=== PATIENT | female | born 1955 | race Caucasian/White ===

== ENCOUNTER → 2017-11-06 | Day surgery (SDC) | payer OTHER ==
[2017-11-06] VITALS (31 sets, daily range): BP systolic 57–136; BP diastolic 38–93
[~2017-11-06] MED LIST: ADENOSINE 3MG/1ML 30ML VIAL ONE; AMLODIPINE BESY10 MG PO; ASPIR 8181 MG PO; ATORVASTATIN CA10 MG PO; ATROPINE SULFATE 0.1 MG/ML 10ML SYR ONE; ESTRADIOL1 MG PO; FENTANYL CITRATE/PF 100MCG/2 ML INJ ONE; HEPARIN SOD (PORCINE) 1000 UNIT/ML 30ML ONE; HEPARIN SOD/SOD CHLORIDE 2,000 ML ONE; HYDROCHLOROTHIA25 MG PO; IOPAMIDOL 300MG/ML 100 ML INFUS..BTL IV ONE; IOPAMIDOL 370 MG/ML 200 ML INFUS..BTL INJ ONE; LEVOTHYROXINE112 MCG PO; LIDOCAINE HCL 2% LOCAL 20 ML VIAL ONE; MIDAZOLAM HCL 2 MG/2 ML VIAL ONE; NITROGLYCERIN/D5W 200 MCG/ML 250 ML ONE; OMEPRAZOLE40 MG PO; QUINAPRIL HCL20 MG PO; SODIUM CHLORIDE 0.9% 1000ML 1,000 ML ONE; SODIUM CHLORIDE 0.9% 500ML 1,000 ML ONE; SODIUM CHLORIDE 0.9% 50ML 50 ML ONE; fish oil PO
[2017-11-06 10:14] LABS: BASOPHILS % 0.6 % (0.0-1.0); EOSINOPHILS # (AUTO) 0.1 (0.0-0.4); EOSINOPHILS % 1.2 % (0.0-6.0); HEMATOCRIT 45.3 % (34.2-44.1); HEMOGLOBIN 15.4 g/dL (12.0-16.0); LYMPHOCYTES # (AUTO) 2.7 (1.0-3.2); LYMPHOCYTES % 38.8 % (18.0-39.1); MEAN CORPUSCULAR HEMOGLOBIN 31.4 pg (28-32); MEAN CORPUSCULAR VOLUME 92.3 fL (81-99); MONOCYTES # (AUTO) 0.4 (0.2-0.8); MONOCYTES % 5.1 % (4.4-11.3); NEUTROPHILS # (AUTO) 3.7 (2.1-6.9); NEUTROPHILS % 53.4 % (38.7-80.0); PLATELET COUNT 259 x10e3/uL (140-360); RED BLOOD COUNT 4.91 x10e6/uL (3.6-5.1); RED CELL DISTRIBUTION WIDTH 12.3 % (11.7-14.4)
[2017-11-06 10:22] LABS: INR 1.06
[2017-11-06 10:23] LABS: PARTIAL THROMBOPLASTIN TIME 26.4 seconds (23.8-35.5)
[2017-11-06 10:33] LABS: ALANINE AMINOTRANSFERASE 25 IU/L (0-55); ALBUMIN 4.3 g/dL (3.5-5.0); ALBUMIN/GLOBULIN RATIO 1.1 (0.8-2.0); ALKALINE PHOSPHATASE 74 IU/L (40-150); ANION GAP 14.4 mmol/L (8-16); BLOOD UREA NITROGEN 12 mg/dL (7-26); BUN/CREATININE RATIO 14 (6-25); CALCIUM 9.4 mg/dL (8.4-10.2); CARBON DIOXIDE 29 mmol/L (22-29); CHLORIDE 99 mmol/L (98-107); CREATININE, SERUM 0.85 mg/dL (0.57-1.11); EST GLOMERULAR FILTRATION RATE > 60 ML/MIN (60-); GLUCOSE 93 mg/dL (74-118); POTASSIUM 3.4 mmol/L (3.5-5.1); SODIUM 139 mmol/L (136-145)
--- NOTE | 2017-11-06 13:06 | Pre Op History & Physical ---
Patient is in the [facility] for heart catheterization. CHIEF COMPLAINT: Patient having neck pain and chest pain on and off for the last 2 to 3 weeks, and the patient underwent a treadmill stress test strongly positive within [address] depression in the anterior and inferior leads, also. Patient has history of hypertension for some time. This patient's multiple medications include metoprolol tartrate 50 mg p.o. b.i.d., Norvasc 10 mg once a day and also Imdur 30 mg once a day, and patient takes Lipitor 10 mg once a day. Patient has also a history of hypothyroidism and also esophageal reflux. PATIENT IS ALLERGIC TO CODEINE. Patient has no shortness of breath or congestive heart failure, diabetes mellitus or stroke. No history of renal failure. Patient is , and patient is an outdoor power equipment mechanic by occupation. PHYSICAL EXAMINATION GENERAL: The patient is conscious, alert, well oriented. HEART: Normal. LUNGS: Normal. ABDOMEN: Normal. NEUROLOGIC: Normal. SKIN: Normal. EKG is normal. Patient underwent treadmill stress test strongly positive with ST depression 1.5 mm anterior and inferior leads. Patient at this time advised to have a coronary angiogram. That is the reason patient was admitted to this hospital. Patient is also on aspirin 81 mg once a day. IMPRESSION 1. Angina pectoris. 2. Hypertension. 3. Hyperlipidemia. Job#: [id number] EV
--- NOTE | 2017-11-06 13:37 | Operative Report ---
DATE OF PROCEDURE: November 06, 2017 Procedure done at [facility] heart catheterization lab. PROCEDURE 1. Left heart catheterization. 2. Left ventricular angiogram. 3. Coronary angiogram. 4. Fractional flow reserve measurement of the left anterior descending lesion. INDICATION FOR PROCEDURE: Angina pectoris, strongly positive stress test. This procedure was done with conscious sedation, informed consent, to the right femoral artery. Results of tests as follows: Right coronary arteriogram is normal. Left coronary arteriogram shows normal left main artery. Circumflex artery is normal. LAD has got 20% lesion proximally. Mid level has got 50% to 60% lesion noted. Left ventricular angiogram shows LVEF about 60% to 65%. Normal mitral valve and also aortic valve. FFR was performed to assess the severity of the lesion of the mid LAD. At this time, FFR performed using adenosine with FFR protocol. Result of the FFR is 0.86, which is within normal limits. At this time, no intervention is performed on the LAD. Right femoral artery hemostasis achieved by manual compression. Recommend medical treatment. Patient will go home 4 hours after the sheath is removed. She will take rest at home until the morning. Job#: [id number] EV
--- NOTE | 2017-11-06 15:20 | Discharge Summary ---
DISCHARGE DIAGNOSIS 1. Angina pectoris. 2. Moderate coronary artery disease of the left anterior descending. 3. Hypertension. 4. Hypothyroidism. 5. Hyperlipidemia. PROCEDURES: By Dr. Bowling 1. Left heart catheterization. 2. Left ventricular angiogram. 3. Coronary angiogram. 4. Fractional flow reserve measurement of the left anterior descending lesion. Patient underwent the procedure because of abnormal treadmill stress test, angina pectoris, and patient has got only about 50% to 60% lesion in the mid LAD lesion noted, 20% lesion noted proximally. Patient's LVEF was 60%. Advised medical treatment. Patient will discharge after her sheath is removed, after 4 hours of sheath removal. Patient will continue all her present medications. Please refer to the admission reconciliation medications. Medications include aspirin 81 mg once a day, metoprolol tartrate 50 mg b.i.d., Norvasc 10 mg once a day, and anticholesterol medication. Patient can take Tylenol as a pain medication. Patient will go home when the right groin sheath is removed and 4 hours after the sheath removal. Patient to go home and take rest at home. Ajay BOWLING MD Job#: [id number] EV
== END | disposition home or self-care (01) ==
LOC: CATH LAB 06:38
PROVIDERS: ATTEND Internal Medicine Cardiovascular Disease
DX: I25.119 Atherosclerotic heart disease of native coronary artery with unspecified angina pectoris (principal); I10 Essential (primary) hypertension; R94.39 Abnormal result of other cardiovascular function study; E78.5 Hyperlipidemia, unspecified; E03.9 Hypothyroidism, unspecified
CPT/HCPCS: 36415; 77002; 80053; 85025; 85610; 85730; 93458; 93571; C1887; J0153; J1644; J2001; J2250; J7030; J7040; Q9967; 36140